=== PATIENT | female | born 1955 | race Caucasian/White ===

== ENCOUNTER 2016-05-29 09:27 | Emergency (ER) | payer OTHER ==
[2016-05-29 09:33] VITALS: BP 144/82; PULSE 73; TEMP 98; BMI 24.1
[2016-05-29] MEDS ORDERED: IBUPROFEN 600 MG TABLET (FP) PO ONE ×2 (10:39→10:52)
--- NOTE | 2016-05-29 11:26 | PDOC ---
History of Present Illness - General Chief Complaint: Pain Stated Complaint: LT ANKLE PAIN Time Seen by Provider: 05/29/16 10:00 History Source: Patient Exam Limitations: No Limitations - History of Present Illness Initial Comments: 05/29/16 16:45 60 yr female states she stepped in a pot hole twisted left ankle this am. Occurred: reports: this morning Severity: Yes: mild Lower Extremity Pain Location: left: ankle Lower Ext. Injury Location - Specific Injury Location Ankle: left normal inspection, left normal range of motion, left bone tenderness (lateral malleolus) Past History - Past Medical History Allergies/Adverse Reactions: Allergies Allergy/AdvReac Type Severity Reaction Status Date / Time levofloxacin [From Levaquin] Allergy Intermediate Rash Verified 05/29/16 09:33 Home Medications: Ambulatory Orders Guar Gum [Benefiber] 1 each PO TID #0 packet 04/07/15 Docusate Sodium [Colace -] 200 mg PO HS 07/02/15 Anemia: No Asthma: No Cancer: No Cardiac Disorders: No CVA: No COPD: No CHF: No Dementia: No Diabetes: No GI Disorders: Yes (DIVERTICULOSIS/DIVERTICULITIS, GERD, RECTAL BLEEDING) Disorders: No HTN: No Hypercholesterolemia: No Liver Disease: No Seizures: No Thyroid Disease: No - Surgical History Abdominal Surgery: Yes (colon resection 05/02/15) Appendectomy: Yes Cardiac Surgery: No Cholecystectomy: Yes Lung Surgery: No Neurologic Surgery: No Orthopedic Surgery: No - Psycho/Social/Smoking Cessation Hx Anxiety: No Suicidal Ideation: No Smoking History: Never smoked Have you smoked in the past 12 months: No Number of Cigarettes Smoked Daily: 5 Information on smoking cessation initiated: No 'Breaking Loose' booklet given: 10/04/12 Hx Alcohol Use: No Drug/Substance Use Hx: No Substance Use Type: None Hx Substance Use Treatment: No Review of Systems - Review of Systems Able to Perform ROS?: Yes Is the patient limited Georgian proficient: No Musculoskeletal: Yes: Symptoms Reported *Physical Exam - Vital Signs Last Vital Signs Temp Pulse Resp BP Pulse Ox 98 F 73 18 144/82 98 05/29/16 09:30 05/29/16 09:30 05/29/16 09:30 05/29/16 09:30 05/29/16 09:30 - Physical Exam General Appearance: Yes: Nourished, Appropriately Dressed HEENT: positive: EOMI, VINNIE Extremity: positive: Normal Capillary Refill, Normal Inspection, Normal Range of Motion, Tender (left lateral malleoulus, nv intact ) Integumentary: positive: Normal Color, Dry, Warm Neurologic: positive: Fully Oriented, Alert, Normal Mood/Affect, Normal Response , Motor Strength 5/5 Procedures - Splinting Pre-Made Type: velcro ED Treatment Course - RADIOLOGY Radiology Studies Ordered: Category Date Time Status ANKLE & FOOT-LEFT* [RAD] Stat Radiology 05/29/16 10:40 Completed - Medications Given in the ED: ED Medications Discontinued Medications Generic Name Dose Route Start Last Admin Trade Name Freq PRN Reason Stop Dose Admin Ibuprofen 600 mg 05/29/16 10:39 05/29/16 10:53 Motrin - PO 05/29/16 10:40 600 mg ONCE ONE Administration Medical Decision Making - Medical Decision Making 05/29/16 16:47 cc: left ankle swelling and pain after stepping in a pothole will xray to r/o fracture motrin for pain air cast splint and crutches *DC/Admit/Observation/Transfer Diagnosis at time of Disposition: Ankle sprain Qualifiers: Encounter type: initial encounter Involved ligament of ankle: other ligament Laterality: left Qualified Code(s): S93.492A - Sprain of other ligament of left ankle, initial encounter - Discharge Dispostion Disposition: HOME Condition at time of disposition: Good - Referrals Referrals: Rito Chapa MD [Primary Care Provider] - Richard Cowart MD [Staff Physician] - - Patient Instructions Additional Instructions: use the air cast and crutches take motrin as needed for pain elevate and apply ice every 2hrs for 20 minutes follow with the orthopedist for follow up in one week - Post Discharge Activity Work/School Note: Back to Work
== END 2016-05-29 11:31 | disposition home or self-care (01) ==
LOC: JERFT 09:27
PROC: 2W3MX1Z Immobilization of Left Lower Extremity using Splint (ICD-10-PCS; principal; 2016-05-29)
DX: S93.492A Sprain of other ligament of left ankle, initial encounter (principal); X50.1XXA Overexertion from prolonged static or awkward postures, initial encounter; Y93.89 Activity, other specified; Y92.89 Other specified places as the place of occurrence of the external cause
CPT/HCPCS: 73610-TC-LT; 73630-TC-LT; 99282-25

== ENCOUNTER 2016-09-18 13:51 | Day surgery (SDC) | payer OTHER ==
[2016-09-13 14:03] VITALS: BMI 24.1
[2016-09-18 15:56] VITALS: TEMP 97.7
[2016-09-18 16:23] VITALS: BP 129/76; PULSE 61
== END 2016-09-18 16:38 | disposition home or self-care (01) ==
LOC: JASU-SURG 13:51
PROVIDERS: ATTEND Internal Medicine Gastroenterology
PROC: 0D7N8ZZ Dilation of Sigmoid Colon, Via Natural or Artificial Opening Endoscopic (ICD-10-PCS; principal; 2016-09-18 14:30)
DX: K62.4 Stenosis of anus and rectum (principal); K64.8 Other hemorrhoids

== ENCOUNTER 2016-10-09 09:47 | Day surgery (SDC) | payer OTHER ==
[2016-10-09 10:02] VITALS: BMI 24.8
[2016-10-09] MEDS ORDERED: LIDOCAINE HCL/PF 2% SDV 5ML VIAL ONE (10:19)
[2016-10-09] MEDS ORDERED: PROPOFOL 20 ML ONE (10:20)
[2016-10-09 11:09] VITALS: TEMP 97.8
[2016-10-09 11:53] VITALS: BP 131/68; PULSE 62
== END 2016-10-09 12:22 | disposition home or self-care (01) ==
LOC: JASU-ENDO 09:47 → JOR 09:47 → JASU-ENDO 12:22
PROVIDERS: ATTEND Internal Medicine Gastroenterology
PROC: 0D7N8ZZ Dilation of Sigmoid Colon, Via Natural or Artificial Opening Endoscopic (ICD-10-PCS; principal; 2016-10-09 10:30)
DX: K91.89 Other postprocedural complications and disorders of digestive system (principal); K57.30 Diverticulosis of large intestine without perforation or abscess without bleeding; K64.8 Other hemorrhoids; Z98.0 Intestinal bypass and anastomosis status

== ENCOUNTER 2016-11-13 13:14 | Day surgery (SDC) | payer OTHER ==
[2016-11-13] MEDS ORDERED: PROPOFOL 20 ML ONE (14:18)
[2016-11-13 14:19] VITALS: BMI 23.8
[2016-11-13 15:15] VITALS: TEMP 97.4
[2016-11-13 16:19] VITALS: BP 130/70; PULSE 58
== END 2016-11-13 16:19 | disposition home or self-care (01) ==
LOC: JASU-ENDO 13:14
PROVIDERS: ATTEND Internal Medicine Gastroenterology
PROC: 0D7N8ZZ Dilation of Sigmoid Colon, Via Natural or Artificial Opening Endoscopic (ICD-10-PCS; principal; 2016-11-13 14:00)
DX: K91.89 Other postprocedural complications and disorders of digestive system (principal); K64.8 Other hemorrhoids; Z98.0 Intestinal bypass and anastomosis status

== ENCOUNTER 2017-02-09 20:45 | Emergency (ER) | payer OTHER ==
[2017-02-09 21:08] VITALS: BP 120/73; PULSE 79; TEMP 98.4; BMI 25.9
[2017-02-09] MEDS ORDERED: KETOROLAC TROMETHAMINE 60 MG/2 ML VIAL IM ONE (21:39)
--- NOTE | 2017-02-09 21:39 | PDOC ---
History of Present Illness - General Chief Complaint: Headache Stated Complaint: HEADACHE Time Seen by Provider: 02/09/17 21:21 History Source: Patient Exam Limitations: No Limitations - History of Present Illness Initial Comments: 02/09/17 21:33 Patient is a [61-year-old female who denies any significant medical history currently on no medication. Patient reports that approximately 4 PM started to have right ear pain now with right-sided headache, generalized aches and pains. Tactile fever, no nausea vomiting, no diarrhea. Ambulatory to the ER.] Past Medical History: [Denies]. Allergies: No known allergies Medications: [None] Family History: Non-contributory Social History: Denies smoking, alcohol use, or IVDU Review of Systems GENERAL/CONSTITUTIONAL: [No fever or chills. No weakness. No weight change.] HEAD, EYES, EARS, NOSE AND THROAT: [No change in vision. No ear pain or discharge. No sore throat. ] CARDIOVASCULAR: [No chest pain or shortness of breath.] RESPIRATORY: [No cough, wheezing, or hemoptysis.] GASTROINTESTINAL: [No nausea, vomiting, diarrhea or constipation. No rectal bleeding.] GENITOURINARY: [No dysuria, frequency, or change in urination.] MUSCULOSKELETAL: [No joint or muscle swelling or pain. No neck or back pain.] SKIN : [No rash or easy bruising.] NEUROLOGIC: [Right-sided headache, no vertigo, loss of consciousness, or loss of sensation.] HEMATOLOGIC/LYMPHATIC: [No lymphadenopathy] Physical Exam: GENERAL: [The patient is awake, alert, and fully oriented, in no acute distress. ] EYES: [Pupils equal, round and reactive to light, extraocular movements intact, sclera anicteric, conjunctiva clear.] ENT: [Right TM is erythematous with fluid, nares patent, oropharynx clear without exudates. Moist mucous membranes. No uvula deviation] NECK: [Normal range of motion, supple without lymphadenopathy, JVD, or masses.] LUNGS: [Breath sounds equal, clear to auscultation bilaterally. No wheezes, and no crackles.] HEART: [Regular rate and rhythm, normal S1 and S2 without murmur, rub or gallop. ] ABDOMEN: [Soft, nontender, normoactive bowel sounds. No guarding, no rebound. No masses. No bruising or abrasions] MUSCULOSKELETAL: [Normal range of motion, no edema. No clubbing or cyanosis. No cords, erythema, or tenderness. No CVA Tenderness with fist.] NEUROLOGICAL: [Cranial nerves II through XII grossly intact. Normal speech, normal gait.] SKIN: [Warm, Dry, normal turgor, no rashes or lesions noted.] 02/09/17 21:44 Past History - Past Medical History Allergies/Adverse Reactions: Allergies Allergy/AdvReac Type Severity Reaction Status Date / Time levofloxacin [From Levaquin] Allergy Intermediate Rash Verified 05/29/16 09:33 Home Medications: Ambulatory Orders Amox-Tr/K Cl [Augmentin - 875Mg Tablet] 1 tab PO BID #14 tablet 02/09/17 Ibuprofen [Motrin -] 600 mg PO QID #28 tablet 02/09/17 Anemia: No Asthma: No Cancer: No Cardiac Disorders: No CVA: No COPD: No CHF: No Dementia: No Diabetes: No GI Disorders: Yes (DIVERTICULOSIS/DIVERTICULITIS, GERD, RECTAL BLEEDING) Disorders: No HTN: No Hypercholesterolemia: No Liver Disease: No Seizures: No Thyroid Disease: No - Surgical History Abdominal Surgery: Yes (colon resection 05/02/15) Appendectomy: Yes Cardiac Surgery: No Cholecystectomy: Yes Lung Surgery: No Neurologic Surgery: No Orthopedic Surgery: No - Suicide/Smoking/Psychosocial Hx Smoking History: Never smoked Have you smoked in the past 12 months: No Number of Cigarettes Smoked Daily: 5 If you are a former smoker, when did you quit?: 2013 Information on smoking cessation initiated: No 'Breaking Loose' booklet given: 10/04/12 Hx Alcohol Use: No Drug/Substance Use Hx: No Substance Use Type: None Hx Substance Use Treatment: No *Physical Exam - Vital Signs Last Vital Signs Temp Pulse Resp BP Pulse Ox 98.4 F 79 18 120/73 100 02/09/17 21:05 02/09/17 21:05 02/09/17 21:05 02/09/17 21:05 02/09/17 21:05 Medical Decision Making - Medical Decision Making 02/09/17 21:46 A/P: Patient with an acute otitis media with effusion on the right, sudden onset today of pain. Headache is 10 out of 10 sharp on the right side of the head close to the ear. Patient is neurologically intact. I have sent a rapid influenza will discharge patient on treatment for a right otitis media after receiving results of influenza. Toradol 60 mg IM 1 given for headache 02/09/17 22:45 Influenza is negative, patient reports that pain is resolving after Toradol DC patient home on Augmentin, Motrin for pain Follow-up with PMD if symptoms persist if any increased pain, nausea vomiting, or any other concerns return to ER. I discussed the physical exam findings, ancillary test results and final diagnoses with the patient. I answered all of the patient's questions. The patient was satisfied with the care received and felt comfortable with the discharge plan and treatment plan. The patient will call to arrange follow-up and will return to the Emergency Department with any new, persistent or worsening symptoms. *DC/Admit/Observation/Transfer Diagnosis at time of Disposition: Otitis media with effusion Qualifiers: Laterality: right Qualified Code(s): H65.91 - Unspecified nonsuppurative otitis media, right ear - Discharge Dispostion Disposition: HOME Condition at time of disposition: Good Admit: No - Prescriptions Prescriptions: Amox-Tr/K Cl [Augmentin - 875Mg Tablet] 1 tab PO BID #14 tablet Ibuprofen [Motrin -] 600 mg PO QID #28 tablet - Referrals Referrals: Rito Chapa MD [Primary Care Provider] - Jeff Gray MD [Staff Physician] - - Patient Instructions Printed Discharge Instructions: Middle Ear Infection Additional Instructions: Increase fluids to prevent dehydration Antibiotics as ordered until completed Motrin for pain as needed or fever Please followup with primary care DrZeke in 3 days if symptoms persist Return to emergency department any increased cough, fever, inability to drink or other concerns - Post Discharge Activity Forms/Work/School Notes: Back to Work
[2017-02-09] MEDS ORDERED: KETOROLAC TROMETHAMINE 60 MG/2 ML VIAL ONE (21:45)
== END 2017-02-09 22:53 | disposition home or self-care (01) ==
LOC: JERFT 20:45
PROC: 3E0233Z Introduction of Anti-inflammatory into Muscle, Percutaneous Approach (ICD-10-PCS; principal; 2017-02-09)
DX: H65.91 Unspecified nonsuppurative otitis media, right ear (principal); Z87.19 Personal history of other diseases of the digestive system
CPT/HCPCS: 87804; 96372; 99281-25

== ENCOUNTER 2017-04-03 06:23 | Day surgery (SDC) | payer OTHER ==
[2017-04-02 09:53] VITALS: BMI 25.2
[2017-04-03] MEDS ORDERED: VASOPRESSIN 20 UNITS/ML VIAL IV ONE (07:30)
[2017-04-03] MEDS ORDERED: MIDAZOLAM HCL 2 MG/2 ML SINGLE DOSE VIAL ONE (07:38)
[2017-04-03] MEDS ORDERED: DEXAMETHASONE SOD PHOSPHATE 4 MG/1 ML VIAL ONE (07:55)
[2017-04-03] MEDS ORDERED: ONDANSETRON 4 MG/2 ML VIAL ONE (07:55)
[2017-04-03] MEDS ORDERED: LIDOCAINE HCL/PF 2% SDV 5ML VIAL ONE (07:55)
[2017-04-03] MEDS ORDERED: PROPOFOL 20 ML ONE (07:56)
--- NOTE | 2017-04-03 08:20 | OP ---
Operative Note - Note: Operative Date: 04/03/17 Pre-Operative Diagnosis: Stress incontinence Operation: Mid urethral sling placement Post-Operative Diagnosis: Same as Pre-op Surgeon: Robinson Medel MD. Anesthesia: MAC
[2017-04-03] MEDS ORDERED: ceFAZolin SODIUM 1 GM VIAL ONE (08:28)
[2017-04-03] MEDS ORDERED: ceFAZolin SODIUM 1 GM VIAL IVPB ONE (08:28)
[2017-04-03] MEDS ORDERED: DEXTROSE 5%-0.45% SALINE 1,000 ML IV SCH (08:30)
[2017-04-03] MEDS ORDERED: ONDANSETRON 4 MG/2 ML VIAL IVPUSH PRN (09:04)
[2017-04-03] MEDS ORDERED: oxyCODONE HCL 5 MG TABLET PO PRN (09:04)
[2017-04-03] MEDS ORDERED: LACTATED RINGERS SOLUTION 1,000 ML IV SCH (09:15)
--- NOTE | 2017-04-03 10:02 | OP ---
DATE OF OPERATION: 04/03/2017 SURGEON: Robinson Medel MD PREOPERATIVE DIAGNOSIS: Stress incontinence. POSTOPERATIVE DIAGNOSIS: Stress incontinence. PROCEDURE: Mid-urethral sling placement. HISTORY: This is a very pleasant 61-year-old female with long history of stress incontinence. Preoperative evaluation showed a leak-point pressure of approximately 70 mmHg. After discussing treatment options and answering all questions, the patient elected to undergo the above stated procedure. Risks of reoperation de shahid, urgency or urge incontinence, and bleeding and infection were also discussed with the patient. BRIEF OPERATIVE NOTE: The patient was brought to the operating room, placed in supine position. Once adequate anesthesia was administered, the patient was transferred to dorsal lithotomy position, prepped and draped in the standard sterile fashion. Intravenous Ancef was given. At this time, a Albright catheter was placed to suction drainage. Approximately 6 mL of vasopressin and lidocaine combination was injected approximately 1 cm proximal to the meatus. At this time, a small incision was made in transverse fashion approximately 1 cm to proximal meatus. The anterior vaginal wall was carefully dissected off using blunt and sharp dissection from the periurethral tissue. A paraurethral and vesical space was created to the obturator foramen bilaterally. The obturator foramen was palpable. At this time, an Altis sling was placed uneventfully. It was in the mid-urethral position and was not kinked. There was no evidence of active bleeding. There was the usual amount of small venous oozing. A portion of the anterior vaginal wall was excised and given off as vaginal tissue. Using a 2-0 Vicryl, the incision was closed in a running fashion. Iodoform dressing was then placed, and a Albright was left to straight drainage. Patient was brought to the recovery room in stable and satisfactory condition. ROBINSON MEDEL M.D. [id number]
[2017-04-03 10:48] VITALS: TEMP 98
[2017-04-03 11:01] VITALS: PULSE 64
[2017-04-03] MEDS ORDERED: oxyCODONE HCL 5 MG TABLET ONE (11:05)
[2017-04-03 12:13] VITALS: BP 117/62
--- NOTE | 2017-04-04 14:08 | PATH ---
Surgical Pathology Report Patient Name: GERRY MUSTAFA [facility]. Rec. #: [id number] /Age/Gender: 1955 (Age: 61) / F Account: [id number] Location: [facility] SURGICAL Taken: 04/03/2017 Received: 04/03/2017 Reported: 04/04/2017 Physicians: Robinson Medel M.D. Specimen(s) Received PORTION OF ANTERIOR VAGINAL WALL Clinical History Urinary stress incontinence Final Diagnosis PORTION OF ANTERIOR VAGINAL WALL, MID SUBURETHRAL SLING PLACEMENT: VAGINAL SQUAMOUS MUCOSA WITHOUT SIGNIFICANT PATHOLOGIC FINDINGS. Electronically Signed Savannah Yoo M.D. Gross Description Received in formalin labeled "portion of anterior vaginal wall," is a 2.3 x 1.1 x 0.3 cm sullivan, irregular portion of soft tissue, consistent with vaginal mucosa. No discrete lesions are identified. Co Op sections are submitted in one cassette. /04/03/2017 saudi/04/03/2017
== END 2017-04-03 12:45 | disposition home or self-care (01) ==
LOC: JASU-SURG 06:23
PROVIDERS: ATTEND Urology
PROC: 0TSD0ZZ Reposition Urethra, Open Approach (ICD-10-PCS; principal; 2017-04-03 08:00)
DX: N39.3 Stress incontinence (female) (male) (principal)
CPT/HCPCS: 36415; 84132; 88302-TC; 94760

== ENCOUNTER 2019-01-19 09:32 | Emergency (ER) | payer OTHER ==
[2019-01-19 09:38] VITALS: TEMP 97.6; BMI 26.6
--- NOTE | 2019-01-19 11:06 | PDOC ---
History of Present Illness - General Chief Complaint: Lightheaded Stated Complaint: DIZZYNESS/HEADACHE/SOB Time Seen by Provider: 01/19/19 10:35 - History of Present Illness Initial Comments: The patient is a 59 year old female with a significant past medical history of diverticulitis, GERD, appendectomy, cholecystectomy, hemorrhoids who presents to the emergency department for dizziness and vertigo that started at 6am this morning. Reports that she has had episodes of dizziness before, but they often resolve with a walk or a drink of water and do not last this long. Reports nausea without vomiting. Reports bitemporal headache. She has a hx of migraine headaches around once a month. Reports that the dizziness is worse with movement , such as sitting up. Denies fever/chills. Denies ear pain. Denies cough. Denies chest pain or shortness of breath. Denies abdominal pain. Denies urinary symptoms. Denies diarrhea or constipation. Past History - Past Medical History Allergies/Adverse Reactions: Allergies Allergy/AdvReac Type Severity Reaction Status Date / Time levofloxacin [From Levaquin] Allergy Intermediate Rash Verified 01/19/19 09:37 Home Medications: Ambulatory Orders Meclizine HCl 25 mg PO ONCE PRN 7 Days #7 tablet 01/19/19 Anemia: No Asthma: No Cancer: No Cardiac Disorders: No CVA: No COPD: No CHF: No Dementia: No Diabetes: No GI Disorders: Yes (DIVERTICULOSIS/DIVERTICULITIS, GERD, RECTAL BLEEDING) Disorders: No HTN: No Hypercholesterolemia: No Liver Disease: No Seizures: No Thyroid Disease: No - Surgical History Abdominal Surgery: Yes (colon resection 05/02/15) Appendectomy: Yes Cardiac Surgery: No Cholecystectomy: Yes Lung Surgery: No Neurologic Surgery: No Orthopedic Surgery: No - Psycho Social/Smoking Cessation Hx Smoking History: Never smoked Have you smoked in the past 12 months: No Number of Cigarettes Smoked Daily: 5 If you are a former smoker, when did you quit?: 2013 'Breaking Loose' booklet given: 10/04/12 Hx Alcohol Use: No Drug/Substance Use Hx: No Substance Use Type: None Hx Substance Use Treatment: No Review of Systems - Review of Systems Comments:: GENERAL/CONSTITUTIONAL: No fever or chills. No weakness._ HEAD, EYES, EARS, NOSE AND THROAT: No change in vision. No change in hearing. No sore throat._ CARDIOVASCULAR: No chest pain or shortness of breath_ RESPIRATORY: Denies cough, hemoptysis_ GASTROINTESTINAL: Reports nausea. No vomiting, diarrhea or constipation._ GENITOURINARY: No dysuria, frequency, or change in urination._ MUSCULOSKELETAL: No joint or muscle swelling or pain. No neck or back pain._ SKIN: No rash_ NEUROLOGIC: Reports headache and vertigo. No loss of consciousness, or change in strength/sensation._ HEMATOLOGIC/LYMPHATIC: No anemia, easy bleeding, or history of blood clots._ ALLERGIC/IMMUNOLOGIC: No hives or skin allergy._ *Physical Exam - Vital Signs Last Vital Signs Temp Pulse Resp BP Pulse Ox 97.6 F 77 18 137/89 99 01/19/19 09:35 01/19/19 09:35 01/19/19 09:35 01/19/19 09:35 01/19/19 09:35 - Physical Exam GENERAL: Awake, alert, and oriented to person/place/time, in no acute distress_ HEAD: No signs of trauma, normocephalic, atraumatic _ EYES: PERRLA, EOMI, sclera anicteric, conjunctiva clear. No nystagmus on far lateral gaze. ENT: Hearing grossly normal, nares patent, oropharynx clear without exudates. No uvular deviation. Moist mucosa. Small patch of erythema in upper aspect of right TM. Left TM clear. TMs intact bilaterally. NECK: Normal ROM, supple, no lymphadenopathy, JVD, or masses_ LUNGS: No distress, speaks in full sentences, clear to auscultation bilaterally _ HEART: Regular rate and rhythm, normal S1 and S2, no murmurs appreciated, peripheral pulses normal and equal bilaterally._ ABDOMEN: Soft, nontender, normoactive bowel sounds. No guarding, no rebound. No masses_ EXTREMITIES: Normal inspection, Normal range of motion, no edema. No clubbing or cyanosis_ NEUROLOGICAL: Cranial nerves II through XII grossly intact. Normal speech, normal gait, no focal sensorimotor deficits. Cerebellar testing intact. SKIN: Warm, Dry, normal turgor, no rashes or lesions noted_ ED Treatment Course - LABORATORY CBC & Chemistry Diagram: 01/19/19 11:26 01/19/19 11:26 Medical Decision Making - Medical Decision Making 63 hx of migraines, presenting today with vertigo. Reports she has felt dizzy in the past but this has lasted longer and is not resolving with her usual remedies (walk outside, drink of water). -head CT -cbc, cmp -ekg, trop -meclizine 01/19/19 11:27 EKG shows NSR with premature atrial complexes, 64 bpm, no ST elevation/ depression, no axis deviation, QTc 445. Labs reviewed. Laboratory Tests 01/19/19 01/19/19 01/19/19 11:26 11:26 11:26 WBC 8.3 RBC 4.53 Hgb 13.4 Hct 40.3 MCV 89.0 MCH 29.5 MCHC 33.2 RDW 13.4 Plt Count 226 MPV 10.0 D Absolute Neuts (auto) 6.5 Neutrophils % 79.0 D Lymphocytes % 14.2 D Monocytes % 5.0 Eosinophils % 0.7 D Basophils % 1.1 Nucleated RBC % 0 Sodium 141 Potassium 4.5 Chloride 107 Carbon Dioxide 27 Anion Gap 7 L BUN 18.5 H Creatinine 0.8 Est GFR (CKD-EPI)AfAm 91.58 Est GFR (CKD-EPI)NonAf 79.01 Random Glucose 112 H Calcium 9.1 Magnesium 2.2 Total Bilirubin 0.2 AST 17 ALT 27 Alkaline Phosphatase 83 Troponin I < 0.02 Total Protein 7.3 Albumin 3.6 01/19/19 12:38 CT head shows no evidence of acute intracranial pathology. Mild Chiari Type 1 malformation. Patient reassessed. Reports that her symptoms have improved. Plan to d/c home with meclizine PRN for vertigo, f/u PCP, neurology, and neurosurgery for chiari 1 malformation. Patient verbalized agreement and understanding with plan. All questions answered. Return precautions given. Discharge - Discharge Information Problems reviewed: Yes Clinical Impression/Diagnosis: Vertigo Condition: Stable Disposition: HOME - Admission No - Additional Discharge Information Prescriptions: Meclizine HCl 25 mg PO ONCE PRN 7 Days #7 tablet PRN Reason: Vertigo - Follow up/Referral Referrals: Alton Bal MD, FAANS [Staff Physician] - Rito Chapa MD [Primary Care Provider] - Elier Castro MD [Staff Physician] - - Patient Discharge Instructions Patient Printed Discharge Instructions: Chiari Malformation, DI for Vertigo Additional Instructions: Please take Meclizine 25 mg per day as needed for your dizziness. Please make a follow up appointment with your primary care doctor, a neurosurgeon, and a neurologist for evaluation of a mild Chiari 1 malformation seen on your head CT. If you experience any new, worsening, or concerning symptoms, including nausea, vomiting, severe headache, loss of consciousness, or any other concerns, please return to the emergency department. - Post Discharge Activity Work/Back to School Note: Back to Work
[2019-01-19] MEDS ORDERED: MECLIZINE HCL 25 MG TABLET (FP) PO ONE (11:16)
[2019-01-19] MEDS ORDERED: MECLIZINE HCL 25 MG TABLET (FP) ONE (11:20)
[2019-01-19] MEDS ORDERED: SODIUM CHLORIDE 0.9% 500 ML INFUS.BAG IV ONE (11:40)
[2019-01-19 11:48] LABS: BASO % 1.1 % (0-2.0); EOS % 0.7 % (0-4.5); HEMATOCRIT 40.3 % (32.4-45.2); HEMOGLOBIN 13.4 GM/dL (10.7-15.3); LYMPH % 14.2 % (8-40); MCH 29.5 pg (25.7-33.7); MCHC 33.2 g/dl (32.0-36.0); PLATELET COUNT 226 K/MM3 (134-434); RBC 4.53 M/mm3 (3.60-5.2); RDW 13.4 % (11.6-15.6); WHITE BLOOD COUNT 8.3 K/mm3 (4.0-10.0)
[2019-01-19 12:02] LABS: ALBUMIN 3.6 g/dl (3.4-5.0); ALK PHOS 83 U/L (45-117); ANION GAP 7 MMOL/L (8-16); BILIRUBIN,TOTAL 0.2 mg/dL (0.2-1); BLOOD UREA NITROGEN 18.5 mg/dL (7-18); CALCIUM 9.1 mg/dL (8.5-10.1); CHLORIDE 107 mmol/L (98-107); CO2 27 mmol/L (21-32); CREATININE 0.8 mg/dL (0.55-1.3); GLUCOSE,RANDOM 112 mg/dL (74-106); POTASSIUM 4.5 mmol/L (3.5-5.1); SGOT/AST 17 U/L (15-37); SGPT/ALT 27 U/L (13-61); SODIUM 141 mmol/L (136-145); TOT PROT 7.3 g/dl (6.4-8.2)
--- NOTE | 2019-01-19 12:03 | PDOC ---
Documentation entered by Jessica Loza SCRIBE, acting as scribe for Chanel Pena MD. Chanel Pena MD: This documentation has been prepared by the williameDago Joy, SCRIBE, under my direction and personally reviewed by me in its entirety. I confirm that the documentation accurately reflects all work, treatment, procedures, and medical decision making performed by me. Attending Attestation - Resident Resident Name: Quentin Bustos - ED Attending Attestation I have performed the following: I have examined & evaluated the patient, The case was reviewed & discussed with the resident, I agree w/resident's findings & plan, Exceptions are as noted - HPI HPI: 01/19/19 11:51 The patient is a 63 year old female with significant past medical history of GERD, diverticulitis, appendectomy, cholecystectomy, and hemorrhoids presenting to the ED with vertigo and dizziness since this morning. Patient endorses associated symptoms of headache and nausea. As per patient, she has had similar dizziness before and it usually goes away after drinking water. The patient endorses that today her dizziness lasted several hours more than normal. Patient describes her lightheadedness as room spinning while at rest and worsens with movement. Patient denies taking any medications to alleviate her symptoms. Denies fever, chills, chest pain, SOB, palpitations, weakness, V, D, abdominal pain, bladder and bowel problems, leg swelling, No sick contacts or travel. No new changes in medications. Allergies: Levofloxacin Past Medical History: GERD, diverticulitis appendectomy, cholecystectomy, and hemorrhoids Meds: as documented in EMR PMD: Dr. Rito Chapa - Physicial Exam PE: 01/19/19 11:53 NAD, well appearing, EOMI, PERRL, MMM, nl conjunctiva, anicteric; no nystagmus, neck supple. lungs clear, RRR, abdomen soft nontender. Back nontender. MACIEL x4, no focal neuro deficits. No peripheral edema. normal color for ethnicity, WWP. Alert, oriented to person time and place. CN II-XII grossly intact. Strength prox and distally 5/5 throughout. Sensation grossly intact to light touch. MACIEL x4. No cerebellar signs, no dysmetria, bilateral finger to nose and heel to shepherd equal and symmetric. Speech clear. 01/19/19 12:49 - Medical Decision Making 01/19/19 12:49 Vital Signs Temp Pulse Resp BP Pulse Ox 97.6 F 77 18 137/89 99 01/19/19 09:35 01/19/19 09:35 01/19/19 09:35 01/19/19 09:35 01/19/19 09:35 VS improved, wnl. Differential diagnosis includes peripheral versus central vertigo, anemia, electrolyte abnormalities, infection. Neurologically intact, well-appearing, no focal deficits. Patient was given meclizine for symptoms feels much improved , vertigo/dizziness is improved. She has also had substernal chest discomfort/ shortness of breath for several weeks, troponin is negative so unlikely to be ACS. Labs and electrolytes are within normals here. CT head is unremarkable, incidental Chiari malformation is noted. Instructions for close follow-up with neurosurgery/neurology. Will Rx meclizine as needed for vertigo/dizziness symptoms. Julio maneuvers reviewed, adequate hydration and analgesia, follow- up with primary care doctor, patient and family made aware of impression and plan and incidental findings. Heart Score/ECG Review #1 ECG reviewed & interpreted by me at: 11:30 General ECG Interpretation: Sinus Rhythm, Normal Rate, Normal Intervals 01/19/19 12:02 EKG normal sinus rhythm at 64 bpm, no interval abnormalities, narrow QRS, ST and T wave segments and morphology normal.
[2019-01-19 13:14] VITALS: BP 136/87; PULSE 62
--- NOTE | 2019-01-20 00:53 | EKG ---
Test Reason : Blood Pressure : / mmHG Vent. Rate : 064 BPM Atrial Rate : 064 BPM P-R Int : 148 ms QRS Dur : 082 ms QT Int : 432 ms P-R-T Axes : 058 049 045 degrees QTc Int : 445 ms SINUS RHYTHM WITH PREMATURE ATRIAL COMPLEXES OTHERWISE NORMAL ECG WHEN COMPARED WITH ECG OF 21-DEC-2015 09:20, PREMATURE ATRIAL COMPLEXES ARE NOW PRESENT Confirmed by LISET ORO MD ([id number]) on 01/20/2019 12:53:22 AM Referred By: Confirmed By:LISET ORO MD
== END 2019-01-19 13:18 | disposition home or self-care (01) ==
LOC: JER 09:32
PROC: 3E0337Z Introduction of Electrolytic and Water Balance Substance into Peripheral Vein, Percutaneous Approach (ICD-10-PCS; principal; 2019-01-19)
DX: R42 Dizziness and giddiness (principal); K92.9 Disease of digestive system, unspecified; Z87.891 Personal history of nicotine dependence; Z88.8 Allergy status to other drugs, medicaments and biological substances
CPT/HCPCS: 36415; 70450-TC; 80053; 83735; 84484; 85025; 93005; 93010; 99284-25

== ENCOUNTER 2021-05-16 04:21 | Day surgery (SDC) | payer OTHER ==
[2021-05-12 15:43] VITALS: BMI 25.6
[~2021-05-16 04:21] MED LIST: GENTAMICIN SO4 80 MG/2 ML VIAL IVPB ONE; ceFAZolin SODIUM 1 GM VIAL IVPB ONE
[2021-05-16] MEDS ORDERED: GENTAMICIN SO4 80 MG/2 ML VIAL ONE (09:47)
[2021-05-16] MEDS ORDERED: PROPOFOL 20 ML ONE (10:44)
[2021-05-16] MEDS ORDERED: MIDAZOLAM HCL 2 MG/2 ML SINGLE DOSE VIAL ONE (10:44)
[2021-05-16] MEDS ORDERED: ceFAZolin SODIUM 1 GM VIAL IVPB ONE (10:49)
[2021-05-16] MEDS ORDERED: GENTAMICIN SO4 80 MG/2 ML VIAL IVPB ONE (10:50)
[2021-05-16 13:41] VITALS: BP 131/72; PULSE 68; TEMP 98
== END 2021-05-16 13:40 | disposition home or self-care (01) ==
LOC: JASU-SURG 04:21
PROVIDERS: ATTEND Urology
PROC: 0TF4XZZ Fragmentation in Left Kidney Pelvis, External Approach (ICD-10-PCS; principal; 2021-05-16 11:00)
DX: N20.0 Calculus of kidney (principal)

== ENCOUNTER 2023-06-03 19:54 | Emergency (ER) | payer OTHER ==
[2023-06-03 20:10] VITALS: BP 125/66; PULSE 74; RESP 18; TEMP 98; BMI 22.3
[2023-06-03] MEDS ORDERED: IBUPROFEN 600 MG TABLET (FP) PO ONE (22:02)
[2023-06-03] MEDS: IBUPROFEN 600 MG TABLET (FP) PO ONE (22:03)
== END 2023-06-03 22:03 | disposition home or self-care (01) ==
LOC: JERFT 19:54 → JER 19:54 → JERFT 22:03
PROC: 2W3BX1Z Immobilization of Left Upper Arm using Splint (ICD-10-PCS; principal; 2023-06-03)
DX: S42.402A Unspecified fracture of lower end of left humerus, initial encounter for closed fracture (principal); W10.8XXA Fall (on) (from) other stairs and steps, initial encounter
CPT/HCPCS: 73070-TC-LT-FY; 99283-25